=== PATIENT | female | born 1985 | race Caucasian/White ===

== ENCOUNTER → 2019-09-16 10:02 | Outpatient (BNVA) | payer SELFPAY | PROVIDERS: PCP Nurse Practitioner; Visit Provider Nurse Practitioner | DX: G47.00 Insomnia, unspecified (principal); F32.9 Major depressive disorder, single episode, unspecified; F41.9 Anxiety disorder, unspecified; I10 Essential (primary) hypertension | CPT/HCPCS: 80053; 80061; 84443; 85025 ==

== ENCOUNTER → 2019-09-17 09:19 | Outpatient (BNVA) | payer SELFPAY | PROVIDERS: PCP Nurse Practitioner; Visit Provider Nurse Practitioner | DX: R73.09 Other abnormal glucose (principal) | CPT/HCPCS: 83036 ==

== ENCOUNTER → 2020-03-15 15:11 | Outpatient (BNVA) | payer SELFPAY | PROVIDERS: PCP Nurse Practitioner; Visit Provider Nurse Practitioner Family | DX: L02.92 Furuncle, unspecified (principal); L03.114 Cellulitis of left upper limb | CPT/HCPCS: 87070; 87077; 87205 ==

== ENCOUNTER 2020-09-01 23:31 | Emergency (ER) | payer SELFPAY ==
[2020-09-01 23:52] VITALS: BP 131/86; PULSE 73; RESP 18; TEMP 36.5; O2SAT 96; BMI 42.0
--- NOTE | 2020-09-02 00:35 | ED_ITS ---
HPI - Female Genitourinary General: Chief complaint: Vaginal Bleeding Stated complaint: heavy vaginal bleeding Time Seen by Provider: 09/01/20 23:57 Source: patient Mode of arrival: ambulatory Limitations: no limitations History of Present Illness: HPI Narrative: 34-year-old female who states that she has had heavy vaginal bleeding throughout the day. She states that she has irregular periods and will have heavy bleeding at times but today was little worse than normal. She is went through multiple tampons and has passed blood clots. She denies any pain. She denies any weakness or lightheadedness. She denies any worsening or improving factors. Associated symptoms: Deny abdominal pain, headache(s) or nausea Date of Last Menstrual Period: 09/01/20 Review of Systems Const: Denies: fever(s), chills, body aches or change in appetite Eyes: Denies: blurry vision or eye discomfort ENMT: Denies: throat pain or dental pain Card: Denies: chest pain Resp: Denies: dyspnea GI: Denies: abdominal pain, nausea, vomiting or diarrhea : Reports: vaginal bleeding Musc: Denies: neck pain or back pain Skin/Breast: Denies: rash Neuro: Denies: headache(s) Psych: Denies: depression [place]/Lymph: Denies: easy bruising All/Imm: Denies: urticaria PFSH ED PFSH: Medical History (Updated 09/02/20 @ 01:44 by Radha Skelton MD) Anxiety and depression Current smoker Major depressive disorder in partial remission Surgical History Hx of hand surgery Right hand cyst 2014 Family History Grandmother Diabetes Family/Other Diabetes Hypertension Thyroid condition Father Hypertension Grandfather Cancer Lung Social History Smoking and tobacco status: current every day smoker cigarettes Packs smoked per day: 1 Years cigarettes smoked: 20 Quit status (tobacco): quit date established Planned quit date: 05/20/20 Second hand smoke exposure: Yes Smoking risk assessment/counseling performed?: Yes Alcohol intake: current Alcohol intake frequency: few times a month Desire information about alcohol rehabilitation?: No Counseling given: No Desire information about substance/drug rehabilitation?: No Counseling given: No Adopted: No Caregiver/support person: No Lives independently: Yes Household members: other Housing: House Marital status: Legally Number of children: 0 Number of grandchildren: 0 service: No Current occupational status: unemployed Current occupational exposures/hazards: No Pets and animals: Yes History of recent travel: No Current gender identity: Female Female Reproductive History: Date of last menstrual period: 09/01/20 Physical Exam Const: COMMON NORMALS: no acute distress, patient oriented x3 and healthy appearing HENMT: COMMON NORMALS: normocephalic and atraumatic HEAD & SCALP: normocephalic and atraumatic Eye: COMMON NORMALS: Equal, round and reactive pupils present and EOMs intact bilaterally PUPIL: Yes Equal, round and reactive pupils present Neck/C-Spine: COMMON NORMALS: full ROM and supple Chest: COMMONS NORMALS: normal inspection of the chest and normal palpation of entire chest wall Resp: COMMON NORMALS: normal respiratory effort, No retractions, No use of accessory muscles and clear to auscultation bilaterally AUSCULTATION: clear to auscultation bilaterally Cardio: COMMON NORMALS: regular rate, regular rhythm and No murmurs present (Cardio) RATE: regular rate RHYTHM: regular rhythm GI: COMMON NORMALS: Normal to inspection, nondistended, normoactive bowel sounds present, Soft to palpation, non-tender and no masses PALPATION: Yes Soft to palpation : OTHER: Small amount of blood in vaginal vault with no clots or heavy bleeding Extremity: COMMON NORMALS: normal to inspection and full ROM Neuro: COMMON NORMALS: patient oriented x3, moves all extremities and no focal motor deficits Psych: COMMON NORMALS: mental status grossly normal, Normal thought process present and cooperative THOUGHT PROCESS: Normal thought process present Skin: COMMON NORMALS: no rashes or lesions noted and no wounds GENERAL SKIN EXAM: no rashes or lesions noted Course Vital Signs: Vital signs: Vital Signs Temperature 97.7 F 09/01/20 23:52 Pulse Rate 72 09/02/20 01:58 Respiratory Rate 18 09/02/20 01:58 Blood Pressure 131/86 09/01/20 23:52 Pulse Oximetry 98 09/02/20 01:58 MDM - Female MDM Narrative: Medical decision making narrative: Patient presents here with vaginal bleeding. Her vaginal exam here showed some bleeding but no heavy b leeding or clots. Her hemoglobin here is normal. She is not . She does have a history of heavy and irregular periods. She is stable for discharge and is to follow-up PCP and return if worsening. Lab Data: Labs: Lab Results 09/01/20 09/01/20 09/01/20 Range/Units 01:21 01:21 01:21 WBC 9.4 (4.0-10.0) 10^3/ uL RBC 5.89 H (4.1-5.3) 10^6/u L Hgb 15.1 (11.5-15.3) g/dL Hct 46.3 (37.0-47.0) % MCV 78.6 L (81-99) fL MCH 25.6 L (28.0-34.0) pg MCHC 32.6 (30.0-36.0) g/dL RDW 12.9 (12.1-15.1) % Plt Count 181 (130-400) 10^3/c mm MPV Not Reportable Neut % (Auto) 56.2 % Lymph % (Auto) 36.3 % [place] % (Auto) 4.4 % Eos % (Auto) 2.3 % Baso % (Auto) 0.5 % Neut # (Auto) 5.27 (1.8-7.7) 10^3/u L Lymph # (Auto) 3.4 (0.8-4.8) 10^3/u L [place] # (Auto) 0.4 (0.2-0.9) 10^3/u L Eos # (Auto) 0.2 (0.0-0.8) 10^3/u L Baso # (Auto) 0.1 (0.0-0.1) 10^3/u L Nucleated RBC % (a uto) 0 % Nucleated RBCs # 0.0 /100WBC Sodium 131 L (136-145) mmol/L Potassium 3.8 (3.5-5.1) mmol/L Chloride 96 L (98-107) mmol/L Carbon Dioxide 23 (22-29) mmol/L Anion Gap 15.8 (5-19) BUN 5 L (6-20) mg/dL Creatinine 0.4 L (0.5-0.9) mg/dL GFR Calculation 185.0 H (90-130) mL/min Glucose 403 H (65-115) mg/dL Calculated Osmolal ity 286 (285-295) mOsm/k g Calcium 8.8 (8.5-10.5) mg/dL Total Bilirubin 0.2 (0.15-1.2) mg/dL AST 18 (0-32) U/L ALT 20 (0-33) U/L Alkaline Phosphata se 82 (35-105) IU/L Total Protein 7.5 (6.6-8.7) g/dL Albumin 4.3 (3.5-5.2) g/dL Globulin 3.2 (1.3-4.6) g/dL HCG, Qual Negative (Negative) Discharge Plan Discharge Patient Disposition: Home Clinical Impression: Vaginal bleeding Condition: Stable Prescriptions: No Action triamcinolone acetonide 0.1 % cream 1 applic TOPICAL BID Qty: 30 RF: 0 lisinopril 10 mg tablet 10 mg PO DAILY Qty: 30 RF: 2 mupirocin 2 % ointment 1 applic TOPICAL TID Qty: 22 RF: 0 hydroxyzine HCl 50 mg tablet 50 mg PO BID PRN (Reason: anxiety) Qty: 60 RF: 2 citalopram 40 mg tablet 40 mg PO .Every morning Qty: 30 RF: 2 naltrexone 50 mg tablet 50 mg PO QAM Qty: 30 RF: 2 prazosin 2 mg capsule 2 mg PO .bedtime Qty: 30 RF: 2 prazosin 1 mg capsule 1 mg PO .bedtime Qty: 30 RF: 2 fluconazole [Diflucan] 150 mg tablet 150 mg PO Q3D Qty: 2 RF: 0 Discharge Orders: Discharge ED (Routine); Ordered 09/02/20 Ordered By: Radha Skelton Referrals: Cody Rodriges, LABOR ARBITRATOR-C [Primary Care Provider] - 1-3 days Discharge Diet: Advance as tolerated Discharge Activity: Resume usual activity Patient Instructions: Dysfunctional Uterine Bleeding (ED) Coding Level of Care Code ED Physician Vice President for [facility] Fwd Exam Comprehensive
[2020-09-02 01:33] LABS: Basophils # 0.1 10^3/uL (0.0-0.1); Basophils % 0.5 %; Eosinophils # 0.2 10^3/uL (0.0-0.8); Eosinophils % 2.3 %; Hematocrit 46.3 % (37.0-47.0); Hemoglobin 15.1 g/dL (11.5-15.3); Lymphocytes # 3.4 10^3/uL (0.8-4.8); Lymphocytes % 36.3 %; Mean Corpuscular HGB Conc 32.6 g/dL (30.0-36.0); Mean Corpuscular Hemoglobin 25.6 pg (28.0-34.0); Mean Corpuscular Volume 78.6 fL (81-99); Monocytes # 0.4 10^3/uL (0.2-0.9); Monocytes % 4.4 %; Neutrophils # 5.27 10^3/uL (1.8-7.7); Neutrophils % 56.2 %; Nucleated Red Blood Cells % 0 %; Platelet Count 181 10^3/cmm (130-400); Red Blood Count 5.89 10^6/uL (4.1-5.3); Red Cell Distribution Width 12.9 % (12.1-15.1); White Blood Count 9.4 10^3/uL (4.0-10.0)
[2020-09-02 01:42] LABS: HCG, Serum Qual Negative (Negative)
[2020-09-02 01:53] LABS: Alanine Aminotransferase 20 U/L (0-33); Albumin Level 4.3 g/dL (3.5-5.2); Alkaline Phosphatase 82 IU/L (35-105); Anion Gap 15.8 (5-19); Aspartate Amino Transferase 18 U/L (0-32); Blood Urea Nitrogen 5 mg/dL (6-20); Calcium 8.8 mg/dL (8.5-10.5); Carbon Dioxide 23 mmol/L (22-29); Chloride 96 mmol/L (98-107); Globulin 3.2 g/dL (1.3-4.6); Glucose 403 mg/dL (65-115); Osmolality Calculated 286 mOsm/kg (285-295); Potassium 3.8 mmol/L (3.5-5.1); Sodium 131 mmol/L (136-145); Total Bilirubin 0.2 mg/dL (0.15-1.2); Total Protein 7.5 g/dL (6.6-8.7)
[2020-09-02 01:58] VITALS: PULSE 72; RESP 18; O2SAT 98
[2020-09-02 02:15] LABS: INR 1.02 (0.8-1.2)
== END 2020-09-02 02:00 | disposition home or self-care (01) ==
PROVIDERS: Emergency Provider Emergency Medicine; PCP Nurse Practitioner
DX: N93.9 Abnormal uterine and vaginal bleeding, unspecified (principal); F17.210 Nicotine dependence, cigarettes, uncomplicated
CPT/HCPCS: 80053; 84703; 85025; 85610; 99283; E0352

== ENCOUNTER → 2020-09-06 10:01 | Outpatient (BNVA) | payer SELFPAY | PROVIDERS: PCP Nurse Practitioner; Visit Provider Nurse Practitioner Family | DX: N93.9 Abnormal uterine and vaginal bleeding, unspecified (principal) | CPT/HCPCS: 80053; 85025 ==

== ENCOUNTER → 2020-11-08 13:43 | Outpatient (BNVA) | payer SELFPAY | PROVIDERS: PCP Nurse Practitioner; Visit Provider Nurse Practitioner Family | DX: E11.65 Type 2 diabetes mellitus with hyperglycemia (principal) | CPT/HCPCS: 80053; 80061; 83036; 84443; 85025 ==

== ENCOUNTER → 2021-04-28 10:43 | Outpatient (BNVA) | payer SELFPAY | PROVIDERS: PCP Nurse Practitioner; Visit Provider Nurse Practitioner Family | DX: E11.65 Type 2 diabetes mellitus with hyperglycemia (principal); I10 Essential (primary) hypertension | CPT/HCPCS: 80053; 80061; 83036; 84443; 85025 ==

== ENCOUNTER → 2021-04-29 10:33 | Outpatient (BNVA) | payer OTHER, SELFPAY | PROVIDERS: PCP Nurse Practitioner; Visit Provider Nurse Practitioner Family | DX: Z20.822 Contact with and (suspected) exposure to COVID-19 (principal) | CPT/HCPCS: 87635 ==

== ENCOUNTER → 2021-11-03 15:45 | Outpatient (BNVA) | payer SELFPAY | PROVIDERS: PCP Nurse Practitioner; Visit Provider Nurse Practitioner Family | DX: F41.9 Anxiety disorder, unspecified (principal); F32.9 Major depressive disorder, single episode, unspecified; G47.9 Sleep disorder, unspecified; E11.65 Type 2 diabetes mellitus with hyperglycemia; I10 Essential (primary) hypertension; F17.200 Nicotine dependence, unspecified, uncomplicated | CPT/HCPCS: 80053; 80061; 83036; 84443; 85025 ==

== ENCOUNTER → 2023-04-02 11:11 | Outpatient (BNVA) | payer SELFPAY | PROVIDERS: PCP Nurse Practitioner; Visit Provider Nurse Practitioner Family | DX: E11.65 Type 2 diabetes mellitus with hyperglycemia (principal); B37.31 Acute candidiasis of vulva and vagina | CPT/HCPCS: 80053; 80061; 83036; 84443; 85025 ==

== ENCOUNTER → 2023-05-22 10:51 | Outpatient (BNVA) | payer SELFPAY | PROVIDERS: PCP Nurse Practitioner; Visit Provider Nurse Practitioner Family | DX: D50.9 Iron deficiency anemia, unspecified (principal); E11.65 Type 2 diabetes mellitus with hyperglycemia; K08.89 Other specified disorders of teeth and supporting structures; D50.8 Other iron deficiency anemias; B37.31 Acute candidiasis of vulva and vagina; E78.1 Pure hyperglyceridemia | CPT/HCPCS: 83540 ==

== ENCOUNTER 2023-06-09 09:26 | Emergency (ER) | payer SELFPAY ==
[2023-06-09 10:06] VITALS: BP 121/73; PULSE 77; RESP 18; TEMP 36.7; O2SAT 97; BMI 40.7
--- NOTE | 2023-06-09 10:11 | ED_ITS ---
HPI - Nausea/Vomiting/Diarrhea 2 General: Chief complaint: Nausea/Vomiting/Diarrhea Stated complaint: abd pain, N/V/D Time Seen by Provider: 06/09/23 10:10 Source: patient Mode of arrival: ambulatory History of Present Illness: 37-year-old female presents emergency ro om with complaints of nausea vomiting and diarrhea that began this morning with lower abdominal cramping. Denies dysuria urgency or frequency no hematochezia melena times coffee-ground emesis or hematuria. MD elicited complaint: nausea and vomiting Associated symtoms: Denies chest pain or dysuria Review of Systems 2 Const: Denies: fever(s) or chills Card: Denies: chest pain Resp: Denies: dyspnea GI: Denies: abdominal pain : Denies: dysuria, urinary frequency or urinary urgency Musc: Denies: neck pain or back pain Skin/Breast: Denies: rash PFSH ED 2 PFSH: Medical History (Updated 06/09/23 @ 12:05 by Kalia Arguello DO) Major depressive disorder in partial remission Current smoker Anxiety and depression Surgical History Hx of hand surgery Right hand cyst 2014 Family History Grandmother Diabetes Family/Other Diabetes Hypertension Thyroid disease Father Hypertension Grandfather Cancer Lung Social History Smoking and tobacco/nicotine status: current every day tobacco/nicotine user cigarettes Packs smoked per day: 1 Years cigarettes smoked: 20 Quit status (tobacco/nicotine): quit date established Planned quit date: 05/20/20 Second hand smoke exposure: Yes Alcohol intake: current Alcohol intake frequency: few times a month Substance/Drug Use: never Adopted: No Caregiver/support person: No Lives independently: Yes Household members: other Housing: House Marital status: Legally Number of children: 0 Number of grandchildren: 0 service: No Current occupational status: unemployed Current occupational exposures/hazards: No Pets and animals: Yes Do you think of yourself as: Straight/Heterosexual Current gender identity: Female Physical Exam 2 Const: COMMON NORMALS: no acute distress GENERAL APPEARANCE: cooperative and comfortable ORIENTATION/CONSCIOUSNESS: Yes awake, Yes oriented to person, Yes oriented to place and Yes oriented to time HENMT: COMMON NORMALS: normocephalic, atraumatic and hearing grossly normal bilaterally HEAD & SCALP: normocephalic and atraumatic Resp: COMMON NORMALS: normal respiratory effort, No retractions, No use of accessory muscles and clear to auscultation bilaterally AUSCULTATION: clear to auscultation bilaterally Cardio: COMMON NORMALS: regular rate, regular rhythm and No murmurs present (Cardio) RATE: regular rate RHYTHM: regular rhythm GI: COMMON NORMALS: Soft to palpation and No hepatosplenomegaly present A USCULTATION: Yes normoactive bowel sounds PALPATION: Yes Soft to palpation, No Tenderness to palpation present (GI), No Guarding due to palpation present (GI) and Yes No hepatosplenomegaly present Extremity: COMMON NORMALS: normal to inspection, capillary refill normal, no clubbing, cyanosis or edema, no calf tenderness and no pedal edema Neuro: SENSORIUM/ORIENTATION: Yes oriented to person, Yes oriented to place and Yes oriented to time Skin: COMMON NORMALS: no rashes or lesions noted GENERAL SKIN EXAM: no rashes or lesions noted Course 2 Vital Signs: Vital signs: Vital Signs Temperature 98.1 F 06/09/23 10:06 Pulse Rate 77 06/09/23 10:06 Respiratory Rate 18 06/09/23 10:06 Blood Pressure 121/73 06/09/23 10:06 Pulse Oximetry 97 06/09/23 10:06 Oxygen Delivery Me thod Room Air 06/09/23 10:06 MDM - Nausea/Vomiting/Diarrhea Medical Decision Making Improved with IV Zofran and fluids feeling much better. Will discharge patient home clear liquid diet for next 24 to 48 hours and advance as tolerated antiemetics prescribed as well Medical Records I reviewed the patient's medical records. Lab Data I reviewed the patient's lab results. 06/09/23 10:30 06/09/23 10:30 Laboratory Results WBC 9.45 10^3/uL (3.29-11.43) 06/09/23 10:30 RBC 5.88 10^6/uL (3.85-5.65) H 06/09/23 10:30 Hgb 15.10 g/dL (11.27-16.99) 06/09/23 10:30 Hct 46.3 % (36-47) 06/09/23 10:30 MCV 78.7 fl (85-98) L 06/09/23 10:30 MCH 25.7 pg (27-33) L 06/09/23 10:30 MCHC 32.6 g/dL (30-55) 06/09/23 10:30 RDW 13.3 % (12.1-15.1) 06/09/23 10:30 Plt Count 173 10^3/cmm (157-399) 06/09/23 10:30 MPV 13.0 fL (7.4-10.4) H 06/09/23 10:30 Neut % (Auto) 77.4 % 06/09/23 10:30 Lymph % (Auto) 17.5 % 06/09/23 10:30 [place] % (Auto) 3.7 % 06/09/23 10:30 Eos % (Auto) 0.4 % 06/09/23 10:30 Baso % (Auto) 0.5 % 06/09/23 10:30 Neut # (Auto) 7.31 10^3/uL (1.8-7.7) 06/09/23 10:30 Lymph # (Auto) 1.7 10^3/uL (0.8-4.8) 06/09/23 10:30 [place] # (Auto) 0.4 10^3/uL (0.2-0.9) 06/09/23 10:30 Eos # (Auto) 0.0 10^3/uL (0.0-0.8) 06/09/23 10:30 Baso # (Auto) 0.1 10^3/uL (0.0-0.1) 06/09/23 10:30 Nucleated RBC % (auto) 0 % 06/09/23 10:30 Nucleated RBCs # 0.0 /100WBC 06/09/23 10:30 Sodium 132 mmol/L (136-145) L 06/09/23 10:30 Potassium 4.2 mmol/L (3.5-5.1) 06/09/23 10:30 Chloride 95 mmol/L (98-107) L 06/09/23 10:30 Carbon Dioxide 25 mmol/L (22-29) 06/09/23 10:30 Anion Gap 16.2 (5-19) 06/09/23 10:30 BUN 7 mg/dL (6-20) 06/09/23 10:30 Creatinine 0.4 mg/dL (0.5-0.9) L 06/09/23 10:30 GFR Calculation 181.6 mL/min (90-130) H 06/09/23 10:30 Glucose 327 mg/dL (65-115) H 06/09/23 10:30 Calculated Osmolality 285 mOsm/kg (285-295) 06/09/23 10:30 Calcium 9.4 mg/dL (8.5-10.5) 06/09/23 10:30 Total Bilirubin 0.3 mg/dL (0.15-1.2) 06/09/23 10:30 AST 13 U/L (0-32) 06/09/23 10:30 ALT 12 U/L (0-33) 06/09/23 10:30 Alkaline Phosphatase 81 U/L (35-105) 06/09/23 10:30 Total Protein 7.8 g/dL (6.6-8.7) 06/09/23 10:30 Albumin 3.9 g/dL (3.5-5.2) 06/09/23 10:30 Globulin 3.9 g/dL (1.3-4.6) 06/09/23 10:30 Lipase 28 U/L (13-60) 06/09/23 10:30 HCG, Qual Negative (Negative) 06/09/23 10:30 Urine Color Yellow (Yellow) 06/09/23 10:36 Urine Appearance Clear (CLEAR) 06/09/23 10:36 Urine pH 5 (5-7) 06/09/23 10:36 Ur Specific [place] 1.020 (1.005-1.030) 06/09/23 10:36 Urine Protein 1+ (Negative) H 06/09/23 10:36 Urine Glucose (UA) 4+ (Normal) H 06/09/23 10:36 Urine Ketones Negative (Negative) 06/09/23 10:36 Urine Blood Neg (Negative) 06/09/23 10:36 Urine Nitrate Negative (Negative) 06/09/23 10:36 Urine Bilirubin Neg (Negative) 06/09/23 10:36 Urine Urobilinogen Norm mg/dL (Negative) 06/09/23 10:36 Ur Leukocyte Esterase Negative (Negative) 06/09/23 10:36 Urine RBC None /hpf (0-2) 06/09/23 10:36 Urine WBC 0-4 /hpf (0-5) H 06/09/23 10:36 Ur Squamous Epith Cells 5-10 /hpf (0-5) H 06/09/23 10:36 Amorphous Sediment Not Reportable 06/09/23 10:36 Urine Bacteria Trace /hpf (NONE) 06/09/23 10:36 All radiology interpretation(s) finalized by discharge Discharge Plan Discharge Patient Disposition: Home Clinical Impression: Gastroenteritis Condition: Stable Prescriptions: New ondansetron HCl 4 mg tablet 4 mg PO Q6H PRN (Reason: nausea and vomiting) Qty: 20 0RF No Action triamcinolone acetonide 0.1 % cream 1 applic TOPICAL BID Qty: 30 0RF Rx Instructions: apply small amount on arms mupirocin 2 % ointment 1 applic TOPICAL TID Qty: 22 0RF Victoza 2-Rene 0.6 mg/0.1 mL (18 mg/3 mL) pen injector See Rx Instructions SUBCUT .COMPLEX Qty: 6 2RF Rx Instructions: inject 0.6mg subcutaneously once daily x 7 days; then 1.2mg daily, not to exceed 1.8mg/day SUBCUT 340B ibuprofen 800 mg tablet 800 mg PO TID PRN (Reason: pain) Qty: 42 0RF fluconazole 150 mg tablet 150 mg PO DAILY Qty: 5 0RF (DME) pen needle, diabetic [Easy Comfort Pen [place]] 31 gauge x 5/16 needle See Rx Instructions .Route Qty: 100 2RF Rx Instructions: As directed Discharge Orders: Discharge ED (Routine); Ordered 06/09/23 Ordered By: Kalia Arguello Referrals: Cody Rodriges, FAMILY COURT COUNSELLOR-C [Primary Care Provider] - Discharge Diet: Clear Liquid Discharge Activity: Resume usual activity Patient Instructions: Clear Liquid Diet (ED), Gastroenteritis (ED), Opioid Safety, Pain Management Activity Restrictions/Additional Instructions: Thank you for choosing [facility] for your healthcare needs today. Please realize this is an emergency room and that we are providing you with a medical screening exam and this may not be complete and all inclusive of all the testing and or work up that you may need to determine your ailment or severity of your illness. It is very important that you follow up as instructed or that you return to the Emergency Department should you have concerns or if your condition changes or worsens in any way. Clear liquid diet for the next 24 to 48 hours and advance as tolerated Stand Alone Forms: Work/School Release Coding Level of Care Code ED Land Surveyor Assistant for [facility] M[place]uia
[2023-06-09] MEDS: ondansetron 2 mg/ML SDV 2 mL 4 MG IVP (10:29)
[2023-06-09] MEDS: sodium chloride 0.9% 1,000 ML 999 ML IV (10:32)
[2023-06-09 10:41] LABS: Basophils # 0.1 10^3/uL (0.0-0.1); Basophils % 0.5 %; Eosinophils % 0.4 %; Hematocrit 46.3 % (36-47); Lymphocytes # 1.7 10^3/uL (0.8-4.8); Lymphocytes % 17.5 %; Mean Corpuscular HGB Conc 32.6 g/dL (30-55); Mean Corpuscular Hemoglobin 25.7 pg (27-33); Mean Corpuscular Volume 78.7 fl (85-98); Monocytes # 0.4 10^3/uL (0.2-0.9); Monocytes % 3.7 %; Neutrophils # 7.31 10^3/uL (1.8-7.7); Neutrophils % 77.4 %; Nucleated Red Blood Cells % 0 %; Platelet Count 173 10^3/cmm (157-399); Red Blood Count 5.88 10^6/uL (3.85-5.65); Red Cell Distribution Width 13.3 % (12.1-15.1); White Blood Count 9.45 10^3/uL (3.29-11.43)
[2023-06-09 10:49] LABS: Add Urine Microscopic? YES; Bilirubin Urine Neg (Negative); Blood Urine Neg (Negative); Glucose Urine UA 4+ (Normal); Ketones Urine Negative (Negative); Leukocyte Esterase Urine Negative (Negative); Nitrate Urine Negative (Negative); Protein Urine 1+ (Negative); Urine Appearance Clear (CLEAR); Urine Color Yellow (Yellow); Urobilinogen Urine Norm (Negative); pH Urine 5 (5-7)
[2023-06-09 10:52] LABS: Add Urine Culture? No; Bacteria Urine TRACE /hpf; WBC Urine 0-4 /hpf (0-5)
[2023-06-09 10:58] LABS: Alanine Aminotransferase 12 U/L (0-33); Albumin Level 3.9 g/dL (3.5-5.2); Alkaline Phosphatase 81 U/L (35-105); Anion Gap 16.2 (5-19); Aspartate Amino Transferase 13 U/L (0-32); Blood Urea Nitrogen 7 mg/dL (6-20); Calcium 9.4 mg/dL (8.5-10.5); Carbon Dioxide 25 mmol/L (22-29); Chloride 95 mmol/L (98-107); Globulin 3.9 g/dL (1.3-4.6); Glomerular Filtration Rate 181.6 mL/min (90-130); Glucose 327 mg/dL (65-115); HCG, Serum Qual Negative (Negative); Lipase 28 U/L (13-60); Osmolality Calculated 285 mOsm/kg (285-295); Potassium 4.2 mmol/L (3.5-5.1); Sodium 132 mmol/L (136-145); Total Bilirubin 0.3 mg/dL (0.15-1.2); Total Protein 7.8 g/dL (6.6-8.7)
== END 2023-06-09 12:23 | disposition home or self-care (01) ==
PROVIDERS: Emergency Provider Family Medicine; PCP Nurse Practitioner
DX: K52.9 Noninfective gastroenteritis and colitis, unspecified (principal); Z72.0 Tobacco use
CPT/HCPCS: 80053; 81001; 83690; 84703; 85025; 96361; 96374; 99284; J2405; J7030

== ENCOUNTER → 2023-08-07 11:05 | Outpatient (BNVA) | payer MEDICAID, SELFPAY | PROVIDERS: PCP Nurse Practitioner; Visit Provider Nurse Practitioner Family | DX: J40 Bronchitis, not specified as acute or chronic (principal); E11.65 Type 2 diabetes mellitus with hyperglycemia | CPT/HCPCS: 80053; 80061; 83036; 84443; 85025 ==

== ENCOUNTER → 2023-11-27 16:14 | Outpatient (BNVA) | payer MEDICAID, SELFPAY | PROVIDERS: PCP Nurse Practitioner; Visit Provider Nurse Practitioner Family | DX: E11.9 Type 2 diabetes mellitus without complications (principal) | CPT/HCPCS: 80053; 80061; 83036; 83721; 84443; 85025 ==

== ENCOUNTER 2024-01-02 20:04 | Emergency (ER) | payer BC, MEDICAID, SELFPAY ==
[2024-01-02 20:35] VITALS: BP 142/82; PULSE 83; RESP 18; O2SAT 96; BMI 40.4
--- NOTE | 2024-01-02 20:58 | XRR_ITS ---
PROCEDURE INFORMATION: Exam: XR Chest Exam date and time: 01/02/2024 9:52 PM Age: 38 years old Clinical indication: Pain; Chest pressure; Additional info: Chest pain TECHNIQUE: Imaging protocol: Radiologic exam of the chest. Views: 1 view. COMPARISON: No relevant prior studies available. FINDINGS: Lungs: The lungs are adequately expanded. No focal consolidations or pulmonary edema. Pleural spaces: No pleural effusions or pneumothorax. Heart/Mediastinum: No cardiomegaly. Bones/joints: No acute fractures. XR/XR chest 1V portable [id number] IMPRESSION: No acute pulmonary disease.
[2024-01-02 21:29] LABS: Basophils % 0.4 %; Eosinophils # 0.1 10^3/uL (0.0-0.8); Eosinophils % 1.2 %; Hematocrit 45.1 % (36-47); Lymphocytes # 2.2 10^3/uL (0.8-4.8); Lymphocytes % 22.3 %; Mean Corpuscular HGB Conc 33.3 g/dL (30-55); Mean Corpuscular Volume 81.1 fl (85-98); Mean Platelet Volume 13.6 fL (7.4-10.4); Monocytes # 0.5 10^3/uL (0.2-0.9); Monocytes % 4.5 %; Neutrophils # 7.08 10^3/uL (1.8-7.7); Neutrophils % 71.3 %; Nucleated Red Blood Cells % 0 %; Platelet Count 164 10^3/cmm (157-399); Red Blood Count 5.56 10^6/uL (3.85-5.65); Red Cell Distribution Width 13.2 % (12.1-15.1); White Blood Count 9.93 10^3/uL (3.29-11.43)
--- NOTE | 2024-01-02 21:41 | ED_ITS ---
HPI - Chest Pain 2 General: Chief Complaint: Abdominal Pain Stated Complaint: pain left side shooting pain hard 2 breathe Time Seen by Provider: 01/02/24 20:58 Source: patient Mode of arrival: ambulatory Limitations: no limitations History of Present Illness: Patient is a 38-year-old female who presents to ED today with a complaint of left lateral chest wall pain. Patient states she was walking her dog earlier today when the dog spotted another dog causing him to tug on his leash forcefully and abruptly pulling the patient forward with the left hand that was holding the leash. Patient states immediately she felt something pull or strain in the left side of her chest. She states since then she has had pain with movement, deep inhalation, coughing, etc. she states she does not feel short of breath at rest. She arrives in no acute distress with stable vital signs. She states she did take ibuprofen prior to arrival which did help with her discomfort. MD complaint: chest pain Onset (ago): hour(s) Prior episodes: No Pain location: lateral Pain radiation: none Relieving factors: rest Exacerbating factors: other (movement, inhalation, coughing, etc) Associated symptoms: Reports no associated symptoms; Deny abdominal pain, dyspnea, palpitations or syncope Treatment prior to arrival: other (ibuprofen) Risk Factors: Thoracic aortic dissection risk factors: none Related Data Previous Rx's Medication Instructions Recorded triamcinolone acetonide 0.1 % 1 applic topical BID itchiing #30 09/04/19 topical cream grams mupirocin 2 % topical ointment 1 applic topical TID #22 grams 02/17/20 fluconazole 150 mg tablet 150 mg PO DAILY #5 tabs 05/22/23 liraglutide 0.6 mg/0.1 mL (18 mg/3 See Rx Instructions SUBCUT 05/22/23 mL) subcutaneous pen injector .COMPLEX #6 mL (Victoza 2-Rene) pen needle, diabetic 31 gauge x #100 ea 05/22/23/ (Easy Comfort Pen [place]) ondansetron HCl 4 mg tablet 4 mg PO Q6H PRN nausea and 06/09/23 vomiting #20 tabs amoxicillin 875 mg-potassium 1 tab PO BID #20 tabs 08/07/23 clavulanate 125 mg tablet prednisone 10 mg tablets in a dose See Rx Instructions PO PER PKG DIR 03/19/24 pack #21 ea promethazine-DM 6.25 mg-15 mg/5 mL 5 - 10 ml PO Q6H PRN cough #240 mL 08/07/23 oral syrup albuterol sulfate 90 mcg/actuation 2 puff inhalation QID PRN 11/27/23 aerosol inhaler shortness of breath or wheezing #6.7 grams azithromycin 250 mg tablet See Rx Instructions PO .COMPLEX #6 11/27/23 tabs prednisone 20 mg tablet 20 mg PO BID #10 tabs 11/27/23 ibuprofen 800 mg tablet 800 mg PO TID PRN pain #20 tabs 01/02/24 Allergies Allergy/AdvReac Type Severity Reaction Status Date / Time Dial Hand Soap AdvReac Rash Uncoded 11/27/23 15:53 naldicon-dx AdvReac Rash/Hives Uncoded 11/27/23 15:53 Review of Systems 2 Card: Reports: chest pain; Denies: palpitations, irregular heart rhythm, edema, swelling of feet/ankles, lightheadedness, syncope, pre-syncope, dyspnea on exertion, orthopnea, leg pain with exertion or acrocyanosis Resp: Reports: pain on inspiration; Denies: dyspnea, wheezing or hemoptysis GI: Denies: abdominal pain Musc: Denies: neck pain, back pain, extremity pain or joint pain Neuro: Denies: dizziness PFSH ED 2 PFSH: Medical History (Updated 01/02/24 @ 22:08 by KELSEY Wu) Major depressive disorder in partial remission Current smoker Anxiety and depression Surgical History Hx of hand surgery Right hand cyst 2014 Family History Grandmother Diabetes Family/Other Diabetes Hypertension Thyroid disease Father Hypertension Grandfather Cancer Lung Social History Smoking and tobacco/nicotine status: current every day tobacco/nicotine user cigarettes Packs smoked per day: 1 Years cigarettes smoked: 20 Quit status (tobacco/nicotine): quit date established Planned quit date: 05/20/20 Second hand smoke exposure: Yes Alcohol intake: current Alcohol intake frequency: few times a month Substance/Drug Use: never Adopted: No Caregiver/support person: No Lives independently: Yes Household members: other Housing: House Marital status: Legally Number of children: 0 Number of grandchildren: 0 service: No Current occupational status: unemployed Current occupational exposures/hazards: No Pets and animals: Yes Do you think of yourself as: Straight/Heterosexual Current gender identity: Female Physical Exam 2 Const: COMMON NORMALS: no limitations, alert and well nourished GENERAL APPEARANCE: cooperative NUTRITIONAL APPEARANCE: obese (BMI 40.4) Neck/C-Spine: COMMON NORMALS: full ROM CERVICAL SPINE: No Cervical spine tenderness Chest: COMMONS NORMALS: normal inspection of the chest OTHER: TTP L lateral chest wall; no crepitus; lung sounds normal Resp: COMMON NORMALS: normal respiratory effort and clear to auscultation bilaterally AUSCULTATION: clear to auscultation bilaterally Cardio: COMMON NORMALS: regular rate and regular rhythm RATE: regular rate RHYTHM: regular rhythm GI: COMMON NORMALS: Normal to inspection, nondistended, normoactive bowel sounds present, Soft to palpation and non-tender PALPATION: Yes Soft to palpation : COMMON NORMALS: Yes no CVA tenderness BLADDER/KIDNEY EXAM: Yes no CVA tenderness Back/Pelvis: COMMON NORMALS: no CVA tenderness and thoracic and lumbar spine normal to inspection Extremity: COMMON NORMALS: normal to inspection and full ROM GENERAL: Yes normal exam except as noted Neuro: SENSORIUM/ORIENTATION: Yes alert Skin: COMMON NORMALS: no rashes or lesions noted GENERAL SKIN EXAM: no rashes or lesions noted Course 2 Vital Signs: Vital signs: Vital Signs Temperature 97.9 F 01/02/24 21:47 Pulse Rate 80 01/02/24 21:47 Respiratory Rate 18 01/02/24 21:47 Blood Pressure 132/83 01/02/24 21:47 Pulse Oximetry 98 01/02/24 21:47 Oxygen Delivery Me thod Room Air 01/02/24 21:47 MDM - Chest Pain Medical Decision Making Patient arrives in no acute distress. Her vital signs are stable. History would suggest a chest wall strain. CXR is unremarkable. She will be allowed discharge. Return to ED precautions given. Medical Records I reviewed the patient's medical records. Lab Data 01/02/24 21:19 01/02/24 21:19 Laboratory Results WBC 9.93 10^3/uL (3.29-11.43) 01/02/24 21:19 RBC 5.56 10^6/uL (3.85-5.65) 01/02/24 21:19 Hgb 15.00 g/dL (11.27-16.99) 01/02/24 21:19 Hct 45.1 % (36-47) 01/02/24 21:19 MCV 81.1 fl (85-98) L 01/02/24 21:19 MCH 27.0 pg (27-33) 01/02/24 21: MCHC 33.3 g/dL (30-55) 01/02/24 21:19 RDW 13.2 % (12.1-15.1) 01/02/24 21:19 Plt Count 164 10^3/cmm (157-399) 01/02/24 21:19 MPV 13.6 fL (7.4-10.4) H 01/02/24 21:19 Neut % (Auto) 71.3 % 01/02/24 21:19 Lymph % (Auto) 22.3 % 01/02/24 21:19 [place] % (Auto) 4.5 % 01/02/24 21:19 Eos % (Auto) 1.2 % 01/02/24 21:19 Baso % (Auto) 0.4 % 01/02/24 21:19 Neut # (Auto) 7.08 10^3/uL (1.8-7.7) 01/02/24 21:19 Lymph # (Auto) 2.2 10^3/uL (0.8-4.8) 01/02/24 21:19 [place] # (Auto) 0.5 10^3/uL (0.2-0.9) 01/02/24 21:19 Eos # (Auto) 0.1 10^3/uL (0.0-0.8) 01/02/24 21:19 Baso # (Auto) 0.0 10^3/uL (0.0-0.1) 01/02/24 21:19 Nucleated RBC % (auto) 0 % 01/02/24 21:19 Nucleated RBCs # 0.0 /100WBC 01/02/24 21:19 Carbon Dioxide 22 mmol/L (22-29) 01/02/24 21:19 BUN 7 mg/dL (6-20) 01/02/24 21:19 Creatinine 0.5 mg/dL (0.5-0.9) 01/02/24 21:19 GFR Calculation 139.6 mL/min (90-130) H 01/02/24 21:19 Glucose 217 mg/dL (65-115) H 01/02/24 21:19 Lactic Acid 2.1 mmol/L (0.5-2.2) 01/02/24 21:19 Calcium 9.4 mg/dL (8.5-10.5) 01/02/24 21:19 Total Bilirubin 0.3 mg/dL (0.15-1.2) 01/02/24 21:19 AST 14 U/L (0-32) 01/02/24 21:19 ALT 16 U/L (0-33) 01/02/24 21:19 Alkaline Phosphatase 74 U/L (35-105) 01/02/24 21:19 C-Reactive Protein 18.6 mg/L (0.0-4.9) H 01/02/24 21:19 Total Protein 7.6 g/dL (6.6-8.7) 01/02/24 21:19 Albumin 4.1 g/dL (3.5-5.2) 01/02/24 21:19 Globulin 3.5 g/dL (1.3-4.6) 01/02/24 21:19 HCG, Qual Negative (Negative) 01/02/24 21:19 XR interpretation done by ED provider, pending radiology final review ED provider radiology interpretation(s): XR interpretation done by ED provider, pending radiology final review ED provider radiology interpretation(s): CXR showing no acute abnormalities Discharge Plan Discharge Patient Disposition: Home Clinical Impression: Chest wall muscle strain Qualifiers: Encounter type: initial encounter Qualified Code(s): S29.011A - Strain of muscle and tendon of front wall of thorax, initial encounter Condition: Stable Prescriptions: Continued ibuprofen 800 mg tablet 800 mg PO TID PRN (Reason: pain) Qty: 20 0RF No Action triamcinolone acetonide 0.1 % cream 1 applic TOPICAL BID Qty: 30 0RF Rx Instructions: apply small amount on arms mupirocin 2 % ointment 1 applic TOPICAL TID Qty: 22 0RF Victoza 2-Rene 0.6 mg/0.1 mL (18 mg/3 mL) pen injector See Rx Instructions SUBCUT .COMPLEX Qty: 6 2RF Rx Instructions: inject 0.6mg subcutaneously once daily x 7 days; then 1.2mg daily, not to exceed 1.8mg/day SUBCUT 340B fluconazole 150 mg tablet 150 mg PO DAILY Qty: 5 0RF (DME) pen needle, diabetic [Easy Comfort Pen [place]] 31 gauge x 5/16 needle See Rx Instructions .Route Qty: 100 2RF Rx Instructions: As directed amoxicillin-pot clavulanate 875-125 mg tablet 1 tab PO BID Qty: 20 0RF prednisone 10 mg tablets,dose pack See Rx Instructions PO PER PKG DIR Qty: 21 0RF Rx Instructions: PO PER PKG DIR promethazine-DM 6.25-15 mg/5 mL syrup 5 - 10 ml PO Q6H PRN (Reason: cough) Qty: 240 0RF albuterol sulfate 90 mcg/actuation HFA aerosol inhaler 2 puff inhalation QID PRN (Reason: shortness of breath or wheezing) Qty: 6.7 0RF azithromycin 250 mg tablet See Rx Instructions PO .COMPLEX Qty: 6 0RF Rx Instructions: For 250 mg dose pack: take 500 mg today (day 1), then 250 mg for 4 days (days 2-5) PO prednisone 20 mg tablet 20 mg PO BID Qty: 10 0RF ondansetron HCl 4 mg tablet 4 mg PO Q6H PRN (Reason: nausea and vomiting) Qty: 20 0RF Discharge Orders: Discharge ED (Routine); Ordered 01/02/24 Ordered By: Destiney Rose Referrals: Cody Rodriges, HIM MANAGER-C [Primary Care Provider] - Patient Instructions: Chest Wall Pain (ED) Stand Alone Forms: Work/School Release Coding Level of Care Code ED Rn Prior Authorization for [facility]
[2024-01-02 21:47] VITALS: BP 132/83; PULSE 80; RESP 18; TEMP 36.6; O2SAT 98
[2024-01-02 21:47] LABS: Lactic Sepsis W/Reflex 2.1 mmol/L (0.5-2.2)
[2024-01-02 21:50] LABS: HCG, Serum Qual Negative (Negative)
[2024-01-02 21:55] LABS: Alanine Aminotransferase 16 U/L (0-33); Albumin Level 4.1 g/dL (3.5-5.2); Alkaline Phosphatase 74 U/L (35-105); Aspartate Amino Transferase 14 U/L (0-32); Blood Urea Nitrogen 7 mg/dL (6-20); C Reactive Protein 18.6 mg/L (0.0-4.9); Calcium 9.4 mg/dL (8.5-10.5); Carbon Dioxide 22 mmol/L (22-29); Creatinine Clr Calc Pharmacy 205.7039; Globulin 3.5 g/dL (1.3-4.6); Glomerular Filtration Rate 139.6 mL/min (90-130); Glucose 217 mg/dL (65-115); Total Bilirubin 0.3 mg/dL (0.15-1.2); Total Protein 7.6 g/dL (6.6-8.7)
[2024-01-02 22:03] LABS: Slide Review Slide Review Perform
[2024-01-02 22:20] VITALS: BP 132/83; PULSE 80; RESP 18; TEMP 36.6; O2SAT 98
[2024-01-02 22:37] LABS: Anion Gap 20.6 (5-19); Chloride 96 mmol/L (98-107); Osmolality Calculated 285 mOsm/kg (285-295); Potassium 3.6 mmol/L (3.5-5.1); Sodium 135 mmol/L (136-145)
[2024-01-02 23:13] LABS: Reflex Lactate Order REFLEX LACTIC ORDERD
== END 2024-01-02 22:23 | disposition home or self-care (01) ==
PROVIDERS: Emergency Medicine; Emergency Provider Physician Assistant; PCP Nurse Practitioner
DX: S29.011A Strain of muscle and tendon of front wall of thorax, initial encounter (principal); F17.210 Nicotine dependence, cigarettes, uncomplicated; X50.9XXA Other and unspecified overexertion or strenuous movements or postures, initial encounter
CPT/HCPCS: 36415; 71045; 80053; 83605; 84703; 85025; 86140; 87040; 99284

== ENCOUNTER → 2024-07-15 15:09 | Outpatient (BNVA) | payer BC, MEDICAID, SELFPAY | PROVIDERS: Family Provider Nurse Practitioner Family; PCP Nurse Practitioner Family; Visit Provider Nurse Practitioner Family | DX: E11.65 Type 2 diabetes mellitus with hyperglycemia (principal); I10 Essential (primary) hypertension | CPT/HCPCS: 80053; 80061; 83036; 85025 ==